=== PATIENT | female | born 1980 | race Caucasian/White ===

== ENCOUNTER 2019-09-04 07:04 | Emergency (ER) | payer MEDICAID, OTHER ==
[~2019-09-04] VITALS: Ht 167.6 cm; Wt 101.8 kg
--- NOTE | 2019-09-04 07:53 | NUR ---
PT STATES SOB AND RT UPPER BACK PAIN, WORSE WITH DEEP BREATHING. PT STATES HX OF PE. PT IS PROTECTING OWN AIRWAY WELL, NO RESPIR DISTRESS NOTED. PT PLACED ON ALL MONITORS, VSS. IV STARTED, LABS DRAWN AND SENT TO LAB. AWAITING CT. CONT TO MONITOR.
[2019-09-04 07:55] LABS: BASOPHILS # (AUTO) 0.06 x10^3/uL (0-0.1); BASOPHILS % (AUTO) 1 % (0-1); EOSINOPHILS # (AUTO) 0.06 x10^3/uL (0-0.4); EOSINOPHILS % (AUTO) 1 % (1-7); LYMPHOCYTES # (AUTO) 2.24 x10^3/uL (1-3.4); LYMPHOCYTES % (AUTO) 26 % (22-44); MD NO; MEAN CORPUSCULAR HEMOGLOBIN 31.7 pg (27.0-34.8); MEAN CORPUSCULAR HGB CONC 33.5 g/dL (32.4-35.8); MEAN CORPUSCULAR VOLUME 94.8 fL (80-100); MEAN PLATELET VOLUME 9.9 fL (7.4-10.4); MONOCYTES # (AUTO) 0.49 x10^3/uL (0.2-0.8); MONOCYTES % (AUTO) 6 % (2-9); NEUTROPHILS % (AUTO) 67 % (42-75); PLATELET COUNT 189 x10^3/uL (130-400); RED BLOOD COUNT 4.78 x10^6/uL (3.82-5.3); RED CELL DISTRIBUTION WIDTH 12.8 % (9.6-15.2)
[2019-09-04] MEDS ORDERED: SODIUM CHLORIDE FLUSH 10ML SYR IVF ONE (08:00)
[2019-09-04 08:06] LABS: ALANINE AMINOTRANSFERASE 29 U/L (12-78); ALBUMIN 3.8 g/dL (3.4-5.0); ANION GAP 6 mmol/L (5-15); CALCIUM 8.9 mg/dL (8.5-10.1); CHLORIDE 110 mmol/L (98-107); CREATININE 1.22 mg/dL (0.55-1.02)
[2019-09-04 08:08] LABS: ALKALINE PHOSPHATASE 55 U/L (45-117); BILIRUBIN,TOTAL 1.1 mg/dL (0.2-1.0)
[2019-09-04] MEDS ORDERED: HYDROmorphone 1 MG/ML, 1ML INJ IV PRN (08:30)
[2019-09-04] MEDS ORDERED: OMNIPAQUE 350 MG/ML, 75ML BOTTLE ONE (08:42)
[2019-09-04] MEDS ORDERED: HYDROmorphone 1 MG/ML, 1ML INJ ONE (09:14)
--- NOTE | 2019-09-04 09:19 | NUR ---
PT MEDICATED FOR PAIN PER ORDERS. PT AWARE OF POC, PT TO BE D/C AFTER MEDS WHEN SAFE TO GO HOME. ER OPA-C AT BEDSIDE TO DISCUSS POC WITH PT. PT REMAINS ON MONITORS, VSS. CONT TO MONITOR,.
--- NOTE | 2019-09-04 10:03 | NUR ---
PT STATES FEELING BETTER AFTER PAIN MEDICATIONS, WANTS TO D/C HOME. WILL LET ERMD KNOW.
--- NOTE | 2019-09-04 10:17 | NUR ---
PT OK FOR D/C. STEADY GAIT AND HAS ALL OWN BELONGINGS UPON D/C. HAS RIDE HOME.
[2019-09-04 10:22] VITALS: BP 110/78
== END 2019-09-04 10:25 | disposition home or self-care (01) ==
LOC: ED 08:16
DX: R06.00 Dyspnea, unspecified (principal); M62.830 Muscle spasm of back; R00.0 Tachycardia, unspecified; R06.02 Shortness of breath; Z86.711 Personal history of pulmonary embolism; Z90.710 Acquired absence of both cervix and uterus
CPT/HCPCS: 36415; 71275; 80053; 85025; 93005; 96374; 99285; J1170; Q9967

== ENCOUNTER 2020-11-14 07:54 | Emergency (ER) | payer OTHER, MEDICAID ==
[~2020-11-14] VITALS: Ht 167.6 cm; Wt 96.0 kg
--- NOTE | 2020-11-14 08:20 | NUR ---
assumed care of pt. pt here for piag[place]le c/o. pt states that she is having back pain and that she thinks that she has a UTI as well. pt states that she "Wants to be checked for all STD's" Dr. Dickinson at bedside for south
--- NOTE | 2020-11-14 08:40 | NUR ---
urine sample collected and sent. pt on her cell phone
--- NOTE | 2020-11-14 08:45 | NUR ---
christina attempting pelvic setup report to Trixie MARTINEZ
--- NOTE | 2020-11-14 08:47 | NUR ---
Report received and care assumed. Searching for pelvic gurney as per MD request.
[2020-11-14 09:04] LABS: HCG UR SG 1.019 (1.003-1.030); MICROSCOPIC AUTO
--- NOTE | 2020-11-14 09:19 | NUR ---
Pelivc bed brought into room and pt moved onto it with instructions to take pants and underwear off for exam. [place] provided to cover pt up while waiting. notified.
--- NOTE | 2020-11-14 09:28 | NUR ---
Pelvic exam chaperoned by this RN, discharge present and swabs walked to lab once pt repositioned on gurney after exam.
[2020-11-14 09:50] LABS: CLUE CELLS NONE SEEN (NONE SEEN); WET PREP WBCS FEW (FEW)
[2020-11-14] MEDS ORDERED: FOSFOMYCIN 3 GM PACKET PO ONE (10:30)
[2020-11-14] MEDS ORDERED: CEFTRIAXONE 1,000 MG IM ONE (10:30)
[2020-11-14] MEDS ORDERED: CEFTRIAXONE 1,000 MG ONE (10:40)
[2020-11-14] MEDS ORDERED: FOSFOMYCIN 3 GM PACKET ONE (10:40)
[2020-11-14 11:22] VITALS: BP 122/75
== END 2020-11-14 11:24 | disposition home or self-care (01) ==
LOC: ED 08:52
DX: A59.01 Trichomonal vulvovaginitis (principal); N30.00 Acute cystitis without hematuria; Z86.711 Personal history of pulmonary embolism; Z87.891 Personal history of nicotine dependence
CPT/HCPCS: 81001; 81025; 87086; 87147; 87210; 87491; 87591; 87808; 96372; 99284; J0696